=== PATIENT | female | born 1995 | race Two or more races ===

== ENCOUNTER → 2024-09-07 | Outpatient (CLI) | payer BC, SELFPAY ==
--- NOTE | 2024-09-07 12:29 | XR_ITS ---
Examination: Lumbar spine, 5 views Technique: Lumbar spine AP, lateral, coned lateral lower lumbar spine, bilateral obliques 5 views Exam date and time: September 07, 2024 1344 hours INDICATIONS: Low back pain beginning 2 years ago FINDINGS: Adequate alignment lumbar vertebral bodies No lumbar fracture No significant lumbar disc narrowing No spondylolisthesis IMPRESSION: No lumbar fracture No lumbar disc narrowing
--- NOTE | 2024-09-07 12:29 | XR_ITS ---
Examination: Sacrum and coccyx 3 views TECHNIQUE: AP inclined AP lateral sacrum and coccyx 3 views Exam date and time: September 07, 2024 1344 hours INDICATIONS: Patient fell 2 months ago with injury to the tailbone, tailbone pain. FINDINGS: Satisfactory alignment sacrococcygeal segments No fracture IMPRESSION: No sacral or coccygeal fracture
== END | disposition home or self-care (01) ==
LOC: CDIM 12:22
PROVIDERS: PCP Family Medicine; Referring Provider Student in an Organized Health Care Education/Training Program; Visit Provider Student in an Organized Health Care Education/Training Program
DX: M54.50 Low back pain, unspecified (principal); S39.92XA Unspecified injury of lower back, initial encounter; W19.XXXA Unspecified fall, initial encounter
CPT/HCPCS: 72110; 72220

== ENCOUNTER → 2025-02-05 | Outpatient (CLI) | payer BC, SELFPAY ==
[2025-02-05 16:31] LABS: Basophils # (Auto) 0.0 Thou/mm3 (0.0-0.2); Basophils % (Auto) 0 % (0-2.5); Eosinophils # (Auto) 0.1 Thou/mm3 (0.0-0.5); Eosinophils % (Auto) 2 % (0-10); Hematocrit 39.1 % (36.0-46.0); Hemoglobin 12.7 g/dL (12.0-16.0); Immature Granulocytes Auto 0.02 Thou/mm3 (0.00-0.00); Lymphocytes # (Auto) 1.6 Thou/mm3 (1.0-4.8); Lymphocytes % (Auto) 29 % (10-50); Mean Corpuscular HGB Conc 32.5 g/dl (31.0-37.0); Mean Corpuscular Hemoglobin 28.0 pg (25.0-35.0); Mean Corpuscular Volume 86 fL (80-100); Monocytes # (Auto) 0.5 Thou/mm3 (0.0-0.8); Monocytes % (Auto) 9 % (0-12); Neutrophils # (Auto) 3.2 Thou/mm3 (1.8-7.7); Neutrophils % (Auto) 60 % (37-80); Nucleated Red Blood Cell # 0.00 Thou/mm3 (0.00-0.00); Nucleated Red Blood Cell % 0 /100 WBC (0); Platelet Count 289 Thou/mm3 (140-440); RDW Standard Deviation 42.1 fL (36.4-46.3); Red Blood Count 4.54 Miln/mm3 (4.00-5.20); White Blood Count 5.4 Thou/mm3 (3.6-11.0)
[2025-02-05 16:34] LABS: HCG,Qualitative Serum Negative
[2025-02-05 16:45] LABS: Follicle Stimulating Hormone 5.39 mIU/mL (See Note)
[2025-02-05 16:51] LABS: Alanine Aminotransferase 15 U/L (10-49); Albumin, Serum 4.5 gm/dL (3.5-5.0); Albumin/Globulin Ratio 1.5 (1.2-2.2); Alkaline Phosphatase 65 U/L (46-116); Anion Gap 11 (7-16); Aspartate Amino Transferase 23 U/L (0-34); BUN/Creatinine Ratio 17 Ratio (12-20); Bilirubin,Total 0.3 mg/dL (0.3-1.2); Blood Urea Nitrogen 12 mg/dL (9-23); Calcium 9.2 mg/dL (8.3-10.6); Calcium (Corrected) 9.2 mg/dL (8.5-10.1); Carbon Dioxide 26.5 mMol/L (20.0-31.0); Chloride 104 mMol/L (98-107); Creatinine (Component) 0.7 mg/dL (0.6-1.3); Globulin 3.0 gm/dL (2.3-3.5); Glucose 102 mg/dL (74-106); Osmolality,Calculated 280 (275-295); Potassium 3.6 mMol/L (3.4-5.1); Sodium 141 mMol/L (136-145); Thyroid Stimulating Hormone 1.26 uIU/mL (0.55-4.78); Total Protein 7.5 gm/dL (5.7-8.2); eGFR > 60 See Note
[2025-02-11 09:38] LABS: DHEA Sulfate* 113 mcg/dL (18-391); Luteinizing Hormone* 7.0 mIU/mL; Testosterone, Free,Dialysis 1.7 pg/mL (0.1-6.4); Testosterone, Total, Dialysis 20 ng/dL (2-45)
== END | disposition home or self-care (01) ==
LOC: COPL 15:15
PROVIDERS: PCP Nurse Practitioner Family; Referring Provider Nurse Practitioner Family; Visit Provider Nurse Practitioner Family
DX: N92.1 Excessive and frequent menstruation with irregular cycle (principal)
CPT/HCPCS: 36415; 80053; 82627; 83001; 83002; 84402; 84403; 84443; 84703; 85025

== ENCOUNTER → 2025-02-08 | Outpatient (CLI) | payer BC, SELFPAY ==
--- NOTE | 2025-02-08 11:15 | XR_ITS ---
Examination: Pelvic ultrasound, transabdominal, complete Technique: Transabdominal ultrasound of the pelvis performed using grayscale imaging Date and time of exam: February 08, 2025 at 1117 hours INDICATIONS: Abnormal vaginal bleeding beginning 3 months ago FINDINGS: Uterus 8.9 cm endometrial stripe 1.0 cm Probable complex cyst in the cervix 13 x 10 x 13 mm Right ovary 3.3 cm arterial flow follicular cysts, the largest 15 mm Left ovary 2.4 cm arterial flow, follicles, the largest 11 mm IMPRESSION: Recommend transvaginal pelvic sonography follow-up to confirm cyst with internal echoes in the cervix, 13 x 10 x 13 mm
== END | disposition home or self-care (01) ==
LOC: CDIM 11:05
PROVIDERS: PCP Nurse Practitioner Family; Referring Provider Nurse Practitioner Family; Visit Provider Nurse Practitioner Family
DX: N92.1 Excessive and frequent menstruation with irregular cycle (principal)
CPT/HCPCS: 76856

== ENCOUNTER → 2025-03-27 | Outpatient (CLI) | payer BC, SELFPAY ==
[2025-03-28 09:59] LABS: BVAG Candida Negative (Negative); Bacterial Vaginosis Markers Negative (Negative); Candida glabrata Positive (Negative); Candida krusei PCR Negative (Negative); Trichomonas Negative (Negative)
== END | disposition home or self-care (01) ==
LOC: SLDO 15:28
PROVIDERS: Referring Provider Physician Assistant Medical; Visit Provider Physician Assistant Medical
DX: B37.89 Other sites of candidiasis (principal); A59.01 Trichomonal vulvovaginitis; N76.0 Acute vaginitis
CPT/HCPCS: 81514

== ENCOUNTER 2025-07-27 00:01 | Emergency (ER) | payer BC, SELFPAY ==
[2025-07-27 00:02] VITALS: BMI 20.3
--- NOTE | 2025-07-27 00:05 | XR_ITS ---
Examination: Knee, left, 3 views Technique: Knee AP, lateral, oblique 3 views Date and time of exam: July 27, 2025, 0058 hours INDICATIONS: Twisting injury to the knee today, knee pain. FINDINGS: No fracture or dislocation. No foreign body IMPRESSION: No fracture or dislocation
[2025-07-27 01:46] VITALS: BP 119/80; PULSE 77; RESP 18; TEMP 37.3; O2SAT 99
--- NOTE | 2025-07-27 02:08 | PRELIM_ITS ---
Radiographs of the left knee joint (3 views). July 27, 2025 0058 hours Clinical History: Left knee pain. Comparison: No prior study is available for comparison. Findings: There are no fractures. Small knee joint effusion. The bones and joint spaces are otherwise unremarkable. Alignment is normal. Normal soft tissues. Impression: No fracture. Report Electronically Signed By: Andreas Posadas 07/27/2025 2:08:21 AM [EST]
--- NOTE | 2025-07-27 02:17 | EDNOTE_ITS ---
Lower Extremity Injury RME/HPI General Chief Complaint: Extremity Injury, Lower Stated Complaint: LT KNEE INJURY Time Seen by Provider: 07/27/25 01:57 Arrival date/time: 07/27/25 00:01 30F with no significant PMH presents to ED with L knee pain after she twisted it and fell. Limitations: no limitations Related Data Home Medications ?Medication ?Instructions ?Recorded ?Confirmed Vitamin * 1 tab PO QDAY #0 tabs Allergies Allergy/AdvReac Type Severity Reaction Status Date / Time No Known Allergies Allergy Verified 07/06/18 19:44 Review of Systems Review of Systems Systems Reviewed: All systems reviewed, normal except as documented Musculoskeletal Musculoskeletal: Reports as per HPI and Reports arthralgias Past Medical History Past Medical History CARDIAC: Negative Congestive Heart Failure RESPIRATORY: Negative Chronic Obstructive Pulmonary Disease (COPD) GENITOURINARY: Negative Renal Disease ENDOCRINE: Negative Diabetes Mellitus Type 1 or Diabetes Mellitus Type 2 Social History SMOKING STATUS: Never smoker ED Exam General Limitations: Present no limitations General appearance: Present alert and in no apparent distress Head Head exam: Present atraumatic Neck Neck exam: Present normal inspection, full ROM and trachea midline Chest Chest inspection: Present normal inspection and symmetric chest wall rise Extremities Exam Extremities exam: Present full ROM Expanded Lower Extremity Exam Knee exam: Present swelling (L) Neurological Exam Neurological exam: Present alert and oriented X3 Psychiatric Psychiatric exam: Present normal affect and normal mood Skin Skin exam: Present warm, dry, intact and normal color Course Quality Measures none Orders Category Date Time Status Apply knee immobilizer NOW Care 07/27/25 01:58 Active XR knee LT 3V Stat Exams 07/27/25 00:05 Taken Vital Signs Vital signs: Vital Signs Temperature 99.2 F 07/27/25 01:46 Pulse Rate 77 07/27/25 01:46 Respiratory Rate 18 07/27/25 01:46 Blood Pressure 119/80 07/27/25 01:46 Pulse Oximetry (%) 99 07/27/25 01:46 Oxygen Delivery Method Room Air 07/27/25 01:46 O2 at 99% on RA and WNLs Extremity Injury, Lower MDM Narrative MDM Narrative:: 30F with no significant PMH presents to ED with L knee pain after she twisted it and fell. Physical exam reveals L knee swelling. Patient is unable to flex the L knee, but can bear weight on it without pain. Patient is afebrile, calm, and alert. Telerad XR no fx. Given senior counsel commercial and knee immobilizer. Patient data External records reviewed:: [facility] previous records Clinical information provided by:: patient Social determinants that could affect healthcare access:: none Patient has the following chronic illnesses:: none How is presenting disease/condition affected by chronic disease/condition?: no chronic disease Evaluation data The following diagnostics were reviewed and interpreted by me:: radiology exam(s) Lab and/or radiology exams considered but not ordered:: ordered Interpretation Summary: above Medications / Prescriptions Medications or Prescriptions considered but not ordered:: not ordered Medication administrations:: n/a Consultations Consultation(s) initiated? (list below): No Diagnosis Extremity Injury, Lower Differential Diagnosis: ankle sprain and strain, acute internal derangement of knee, fracture of femur, fracture of hip, puncture wound of foot, fracture of toe and ankle fracture Most likely diagnosis given after review of the tests above:: acute knee derangement Admission Indicated Admission indicated?: not indicated Admission Request Was there a request for admission?: No Disposition Plan Disposition Plan: Discharge Discharge Attestation Discharge Attestation: The patient and all family members were given an opportunity to ask questions and understood the discharge instructions. Discharge instructions specifically effects, indications for sooner follow up or return to the emergency department, and the expected course of current diagnosis. Patient condition: Stable Discharge Plan Plan Patient Disposition: HOME (Self Care) Discharge Disposition comment: Stable Prescriptions/Referrals Prescriptions/Med Rec: No Action Vitamin * 1 EACH tablet 1 tab PO QDAY Qty: 0 Problem List Clinical Impression: Acute internal derangement of knee Patient/Caregiver Discharge Instructions Education Materials: How Your Knee Works Additional Instructions: Please follow-up with PCP within 24-48 hours and return immediately if symptoms worsen. If problem persists, recommend outpatient PT and/or MRI follow-up. In the meantime, rest, use ice/heat, and/or compression. Print Language: [place] Stand Alone Forms: Patient Portal Info Letter PA/[employer] Supervising Physician UNIQUE/MONICA Supervising Physician: Dr. Hobbs
== END 2025-07-27 02:27 | disposition home or self-care (01) ==
LOC: SERX 05:50
PROVIDERS: Emergency Provider Emergency Medicine; PCP Family Medicine
DX: S83.105A Unspecified dislocation of left knee, initial encounter (principal); W01.0XXA Fall on same level from slipping, tripping and stumbling without subsequent striking against object, initial encounter; X50.1XXA Overexertion from prolonged static or awkward postures, initial encounter
CPT/HCPCS: 73562; 99282